=== PATIENT | female | born 1960 | race Caucasian/White ===

== ENCOUNTER 2019-10-10 15:21 | Emergency (ER) | payer OTHER ==
[~2019-10-10] VITALS: Ht 160 cm; Wt 63.5 kg
[~2019-10-10 15:21] MED LIST: BLADDER MED; CHOLESTEROL; HTN; HYDACE5 PO; RESTLESS LEG MED; [UNRECOGNIZED DRUG - OTHER]
[2019-10-10] MEDS ORDERED: Norco 5-325 Ta1 EACH PO (17:20)
== END 2019-10-10 17:56 | disposition home or self-care (01) ==
LOC: ER 15:21
DX: S62.647A Nondisplaced fracture of proximal phalanx of left little finger, initial encounter for closed fracture (principal); F41.9 Anxiety disorder, unspecified; E78.00 Pure hypercholesterolemia, unspecified; I10 Essential (primary) hypertension; Z88.8 Allergy status to other drugs, medicaments and biological substances; Z87.891 Personal history of nicotine dependence; W19.XXXA Unspecified fall, initial encounter
CPT/HCPCS: 26605; 73110; 73130; 96372-59; 99283-25; J3010

== ENCOUNTER 2020-08-02 08:28 | Day surgery (SDC) | payer OTHER ==
[~2020-08-02] VITALS: Wt 59.8 kg
[~2020-08-02 08:28] MED LIST changes: +AMLO5 PO; +Crestor40 MG PO; +Norco 5-325 Ta1 EACH PO; +ROPI1 PO; +TOLT2 PO
--- NOTE | 2020-08-02 10:00 | NUR ---
08/02/20 Digna Loja SIMETHICONE USED DURING PROCEDURE.
== END 2020-08-02 10:46 | disposition home or self-care (01) ==
LOC: ORSCSDS 08:28
PROVIDERS: Internal Medicine Gastroenterology
PROC: 0DBP8ZX Excision of Rectum, Via Natural or Artificial Opening Endoscopic, Diagnostic (ICD-10-PCS; principal; 2020-08-02 09:45)
PROC: 0DBM8ZX Excision of Descending Colon, Via Natural or Artificial Opening Endoscopic, Diagnostic (ICD-10-PCS; principal; 2020-08-02 09:45)
DX: R19.5 Other fecal abnormalities (principal); D12.4 Benign neoplasm of descending colon; K62.1 Rectal polyp; K64.1 Second degree hemorrhoids; I10 Essential (primary) hypertension; Z87.891 Personal history of nicotine dependence; E78.5 Hyperlipidemia, unspecified; Z79.899 Other long term (current) drug therapy
CPT/HCPCS: 88305; J2250; J2405; J2704; J7120

== ENCOUNTER 2020-10-26 22:54 | Inpatient (IN) | payer OTHER ==
[~2020-10-26] VITALS: Ht 160 cm; Wt 60.9 kg
[~2020-10-26 22:54] MED LIST changes: +Detrol1 MG PO; -TOLT2 PO
[2020-10-27 00:28] LABS: Troponin I 0.079 ng/mL (0.000-0.040)
[2020-10-27 00:59] LABS: Influenza A, PCR Negative (NEGATIVE); Influenza B, PCR Negative (NEGATIVE); Resp Syncytial Virus, PCR Negative (NEGATIVE); SARS-Cov-2 (COVID-19) PCR, MMC Negative (NEGATIVE)
--- NOTE | 2020-10-27 02:35 | NUR ---
ADMIT NOTE PT ARRIVED TO PCU FROM ED VIA STRETCHER AT APPROX 0230. THE PT AMBULATED INDEPENDENTLY FROM ED STRETCHER TO PCU BED. PT A&OX4. SP02>92% ON 2L NC. PT LUNGS SOUND COARSE, AUDIBLE W/O STETHOSCOPE. TELEMETRY READS SINUS TACH, HR 130'S. PT AMBULATED TO BATHROOM TO VOID INDEPENDENTLY WITH NO ISSUES. PT ORIENTED TO ROOM AND CALL LIGHT. CALL LIGHT WITHIN REACH.
[2020-10-27] MEDS ORDERED: VENL37.5ER PO (02:44)
[2020-10-27 02:52] LABS: CPK Creatine Kinase 106 U/L (26-193)
--- NOTE | 2020-10-27 03:48 | NUR ---
CRITICAL LAB LAB LUIS'D AT APPROX 0250 TO NOTIFY OF LACTIC ACID VALUE OF 3.0. CALL PLACED TO MD WASHINGTON. MD WASHINGTON WITH NO FURTHER ORDERS AT THIS TIME.
[2020-10-27 04:20] LABS: BASOPHILS ABSOLUTE AUTO 0.04 K/mm3 (0.00-0.23); BASOPHILS PERCENT AUTO 1 % (0-2); EOSINOPHILS ABSOLUTE AUTO 0.01 K/mm3 (0.00-0.68); EOSINOPHILS PERCENT AUTO 0 % (0-6); Hematocrit 36.2 % (33.0-51.0); Hemoglobin 11.7 g/dL (11.5-16.0); IMMATURE GRAN ABSOLUTE AUTO 0.02 K/mm3 (0.00-0.10); IMMATURE GRAN PERCENT AUTO 0 % (0-1); LYMPHOCYTES ABSOLUTE AUTO 1.37 K/mm3 (0.84-5.20); LYMPHOCYTES PERCENT AUTO 25 % (21-46); MONOCYTES ABSOLUTE AUTO 0.54 K/mm3 (0.16-1.47); MONOCYTES PERCENT AUTO 10 % (4-13); Mean Corpuscular HGB 33.7 pg (26.0-34.0); Mean Corpuscular HGB Conc 32.3 g/dL (31.5-36.5); Mean Corpuscular Volume 104 fL (80-100); NEUTROPHILS ABSOLUTE AUTO 3.48 K/mm3 (1.96-9.15); NEUTROPHILS PERCENT AUTO 64 % (41-73); Platelet Count 323 K/mm3 (150-400); RDW Coefficient Variation 13.8 % (11.7-14.2); RDW Standard Deviation 52.9 fL (35.1-46.3); Red Blood Cell Count 3.47 M/mm3 (3.80-5.20); White Blood Cell Count 5.46 K/mm3 (4.00-11.30)
[2020-10-27 04:48] LABS: Alanine Aminotransfer (ALT/SGP 24 U/L (12-78); Albumin, Blood 2.9 g/dL (3.4-5.0); Albumin/Globulin Ratio 0.8 (0.8-1.8); Alk Phos 106 U/L (50-136); Anion Gap 7 mmol/L (6-16); Aspartate Aminotrans (AST/SGOT 23 U/L (12-37); Bilirubin, Total 0.3 mg/dL (0.1-1.0); Blood Urea Nitrogen 15 mg/dL (8-24); Bun/Creatinine Ratio 53.4 (12.0-20.0); CO2, Blood 26 mmol/L (21-32); Calcium, Blood 8.9 mg/dL (8.5-10.1); Chloride, Blood 112 mmol/L (98-108); Creatinine, Blood 0.28 mg/dL (0.40-1.00); Globulin, Blood 3.6 g/dL (2.2-4.0); Glomerular Filtration Rate >60 (60-); Glucose, Blood 110 mg/dL (70-99); Potassium, Blood 3.5 mmol/L (3.5-5.5); Total Protein, Blood 6.5 g/dL (6.4-8.2)
[2020-10-27 05:21] LABS: Sodium, Blood 145 mmol/L (136-145)
--- NOTE | 2020-10-27 05:31 | NUR ---
SHIFT SUMMARY PT A&OX4. SP02>92% ON 2L UPON ARRIVAL, ABLE TO TITRATE DOWN TO 1L NC. AUDIBLY COARSE SOUNDING BREATHING. SOB W/ EXERTION. TELEMETRY READ AFIB/ST UPON ARRIVAL, PT CONVERTED TO SR AT APPROX 0430, SEE STRIP IN CHART. HR 80'S. PT UP TO BATHROOM WITH STAND BY ASSIST TO VOID. PT DENIES PAIN. NS INFUSING PER EMAR. CALL LIGHT IN REACH. PT SLEPT SINCE BEING ADMITTED. WILL GIVE REPORT TO ONCOMING SHIFT NURSE.
[2020-10-27 10:34] LABS: CPK Creatine Kinase 91 U/L (26-193)
--- NOTE | 2020-10-27 17:34 | NUR ---
Spiritual care note: Asked to speak to Narcisa about ACP. She was very interested in completing an advanced directive. We did this together. She did not want to assign a spokes-person saying "I don't really have any one and I don't want my sons put in that position." She told me about the loss of numerous family members to cancer. She lost her 4 years ago. Two sons live [id number]. Narcisa spoke at length about her new dx of cancer. Theraputic listening was helpful. She needed to vent. She is "not worship. More spiritual." She lost her tiffanie in God when her dtr . Advanced directive completed and notarized. Narcisa does not want heroic measures if there is no hope for meaningful recovery. "If I can't interact with friends/family, let me go." We had an easy rapport and I will remain available. Copies of AD made. Several given to pt. I hand carried one copy to Medical Records.
--- NOTE | 2020-10-27 17:57 | NUR ---
SHIFT NOTE PT HAS BEEN INDEPENDANT IN THE ROOM T/O THE DAY. PT DENIES CP, DID HAVE SOME SOB THIS AFTERNOON WHICH WAS RESOLVED WITH BRATHING TREATMENT. PT A/O X4, TALKATIVE, NADN, VSS. PT INTERMITTENTLY ON NC FOR O2. AWAITING RESULTS OF ECHO AT THIS TIME.
--- NOTE | 2020-10-28 06:56 | NUR ---
SHIFT SUMMARY PATIENT SLIGHTLY ANXIOUS AT THE BEGINNING OF THE SHIFT. PATIENT HAD SOME CONCERNS ABOUT HER HOME MEDICATIONS NOT BEING ORDERED CORRECTLY. DR FLAHERTY NOTIFIED AND ORDERS RECIEVED. PATIENT THEN ABLE TO SETTLE DOWN AND RELAX. PATIENT REPORTS THAT, ALTHOUGH STILL WHEEZY, HER BREATHING HAS IMPROVED SINCE LAST NIGHT. PATIENT APPEARED TO SLEEP WELL THROUGHOUT THE NIGHT. PATIENT CURRENTLY AWAKE IN ROOM SITTING AT THE EDGE OF THE BED, WARM BLANKET PROVIDED. WILL CONTINUE CURRENT PLAN OF CARE.
[2020-10-28 09:06] LABS: Hematocrit 38.4 % (33.0-51.0); Hemoglobin 12.4 g/dL (11.5-16.0); Mean Corpuscular HGB 33.6 pg (26.0-34.0); Mean Corpuscular HGB Conc 32.3 g/dL (31.5-36.5); Mean Corpuscular Volume 104 fL (80-100); Mean Platelet Volume 11.1 fL (9.1-12.4); Platelet Count 353 K/mm3 (150-400); RDW Standard Deviation 53.9 fL (35.1-46.3); Red Blood Cell Count 3.69 M/mm3 (3.80-5.20); White Blood Cell Count 5.16 K/mm3 (4.00-11.30)
[2020-10-28 09:21] LABS: Anion Gap 7 mmol/L (6-16); Blood Urea Nitrogen 19 mg/dL (8-24); Bun/Creatinine Ratio 66.4 (12.0-20.0); CO2, Blood 27 mmol/L (21-32); Calcium, Blood 9.8 mg/dL (8.5-10.1); Chloride, Blood 106 mmol/L (98-108); Creatinine, Blood 0.29 mg/dL (0.40-1.00); Glomerular Filtration Rate >60 (60-); Glucose, Blood 206 mg/dL (70-99); Potassium, Blood 4.1 mmol/L (3.5-5.5); Sodium, Blood 140 mmol/L (136-145)
[2020-10-28 09:30] LABS: BASOPHILS PERCENT MAN 0 % (0-2); EOSINOPHILS PERCENT MAN 0 % (0-6); LYMPHOCYTES ABSOLUTE MAN 0.72 K/mm3 (0.84-5.20); LYMPHOCYTES PERCENT MAN 14 % (21-46); MONOCYTES PERCENT MAN 2 % (4-13); NEUTROPHILS ABSOLUTE MAN 4.33 K/mm3 (1.96-9.15); SEG NEUTROPHILS PERCENT MAN 84 % (41-73); TOTAL CELLS COUNTED 100
--- NOTE | 2020-10-28 12:13 | NUR ---
Brief supportive visit this afternoon. Pt sitting on edge of bed upon arrival eating lunch. Pt reports breathing has significantly improved and denies pain at this time. Pt reports living alone and has a son living in [place] and another son who lives in [place]. Pt denies anxiety and states she isn't going to stress and go with the flow of things. At this time Dr Jones arrives to examine Pt. This RN ended visit. Plan to F/U with Pt for supportive visit at a later time.
[2020-10-28 13:38] LABS: International Normalized Ratio 0.97; Prothrombin Time Results 10.4 Sec (9.7-11.5)
--- NOTE | 2020-10-28 18:03 | NUR ---
SHIFT NOTE PT HAS BEEN INDEPENDANT IN ROOM ALL DAY. VSS. NO ACUTE CHANGES THIS SHIFT. PT IS AWAITING POSSIBLE D/C AND OUTPT LUNG BIOPSY
[2020-10-29 04:22] LABS: Hematocrit 37.7 % (33.0-51.0); Hemoglobin 12.6 g/dL (11.5-16.0); Mean Corpuscular HGB 34.3 pg (26.0-34.0); Mean Corpuscular HGB Conc 33.4 g/dL (31.5-36.5); Mean Corpuscular Volume 103 fL (80-100); Mean Platelet Volume 10.9 fL (9.1-12.4); Platelet Count 339 K/mm3 (150-400); RDW Standard Deviation 53.1 fL (35.1-46.3); Red Blood Cell Count 3.67 M/mm3 (3.80-5.20); White Blood Cell Count 3.78 K/mm3 (4.00-11.30)
[2020-10-29 04:39] LABS: Anion Gap 4 mmol/L (6-16); Blood Urea Nitrogen 22 mg/dL (8-24); Bun/Creatinine Ratio 64.9 (12.0-20.0); CO2, Blood 31 mmol/L (21-32); Calcium, Blood 9.7 mg/dL (8.5-10.1); Chloride, Blood 106 mmol/L (98-108); Creatinine, Blood 0.34 mg/dL (0.40-1.00); Glomerular Filtration Rate >60 (60-); Glucose, Blood 162 mg/dL (70-99); Potassium, Blood 3.8 mmol/L (3.5-5.5); Sodium, Blood 141 mmol/L (136-145)
[2020-10-29 05:03] LABS: BAND PERCENT MAN 2 % (0-8); BASOPHILS PERCENT MAN 0 % (0-2); EOSINOPHILS PERCENT MAN 0 % (0-6); LYMPHOCYTES ABSOLUTE MAN 0.34 K/mm3 (0.84-5.20); LYMPHOCYTES PERCENT MAN 9 % (21-46); MONOCYTES ABSOLUTE MAN 0.03 K/mm3 (0.16-1.47); MONOCYTES PERCENT MAN 1 % (4-13); SEG NEUTROPHILS PERCENT MAN 88 % (41-73); TOTAL CELLS COUNTED 100
--- NOTE | 2020-10-29 06:31 | NUR ---
SHIFT SUMMARY PATIENT PLEASENT THROUGHOUT THE NIGHT. PATIENT APPEARED TO SLEEP WELL MOST OF THE NIGHT. PATIENT APPEARS TO BE VERY EXCITED ABOUT GOING HOME, PATIENT TALKED FREQUENTLY ABOUT HER HOPES TO GO HOME IN THE MORNING. VITAL SIGNS CHARTED. PATIENT CURRENTLY APPEARS TO BE SLEEPING, RESPIRATIONS EVEN AND UNLABORED. PATIENT HAS BEEN NPO SINCE 0000. WILL CONTINUE CURRENT PLAN OF CARE.
[2020-10-29] MEDS ORDERED: DILTIAZEM 24HR360 MG PO (11:52)
[2020-10-29] MEDS ORDERED: Prednisone20 MG PO (11:53)
[2020-10-29] MEDS ORDERED: SEEBRI NEOHA15.6 MC1 INH (11:54)
--- NOTE | 2020-10-29 12:41 | NUR ---
PT IV REMOVED INTACT AND PRESSURE DRESSED. PT EDUCATED ABOUT FOLLOW UP APPOINTMENTS AND NEW MEDICATIONS
== END 2020-10-29 12:29 | disposition home or self-care (01) | DRG 190 ==
LOC: ER 22:54 → PCU 10-27 01:42
PROVIDERS: Emergency Medicine; Internal Medicine Critical Care Medicine; Student in an Organized Health Care Education/Training Program; ADMIT Internal Medicine
DX: J44.1 Chronic obstructive pulmonary disease with (acute) exacerbation (principal); I21.A1 Myocardial infarction type 2; E87.2 Acidosis; C34.91 Malignant neoplasm of unspecified part of right bronchus or lung; C77.1 Secondary and unspecified malignant neoplasm of intrathoracic lymph nodes; R65.10 Systemic inflammatory response syndrome (SIRS) of non-infectious origin without acute organ dysfunction; Z87.891 Personal history of nicotine dependence; I48.0 Paroxysmal atrial fibrillation; G25.81 Restless legs syndrome; Z66 Do not resuscitate; Z20.822 Contact with and (suspected) exposure to COVID-19
CPT/HCPCS: 0241U; 36415; 80048; 80053; 82550; 83605; 83690; 83735; 83880; 84443; 84484; 85007; 85025; 85027; 85610; 87040; 93005; 93010; 93306; 93356; 94640; 94644; 94664; 94667; 94760; 96361; 96365; 96367; 98960; 99285-25; 99406; A9270; J0456; J0696; J1650; J2930; J3480; J7030; J7050

== ENCOUNTER 2020-11-24 15:29 | Observation (INO) | payer OTHER ==
[~2020-11-24] VITALS: Ht 160 cm; Wt 61.1 kg
[~2020-11-24 15:29] MED LIST changes: +DILTIAZEM 24HR360 MG PO; +Prednisone20 MG PO; +SEEBRI NEOHA15.6 MC1 INH; +VENL37.5ER PO
[2020-11-24 15:57] LABS: BASOPHILS ABSOLUTE AUTO 0.03 K/mm3 (0.00-0.23); BASOPHILS PERCENT AUTO 1 % (0-2); EOSINOPHILS ABSOLUTE AUTO 0.01 K/mm3 (0.00-0.68); EOSINOPHILS PERCENT AUTO 0 % (0-6); Hematocrit 36.9 % (33.0-51.0); Hemoglobin 12.2 g/dL (11.5-16.0); IMMATURE GRAN ABSOLUTE AUTO 0.02 K/mm3 (0.00-0.10); IMMATURE GRAN PERCENT AUTO 0 % (0-1); LYMPHOCYTES ABSOLUTE AUTO 0.41 K/mm3 (0.84-5.20); LYMPHOCYTES PERCENT AUTO 7 % (21-46); MONOCYTES ABSOLUTE AUTO 0.04 K/mm3 (0.16-1.47); MONOCYTES PERCENT AUTO 1 % (4-13); Mean Corpuscular HGB 33.6 pg (26.0-34.0); Mean Corpuscular HGB Conc 33.1 g/dL (31.5-36.5); Mean Corpuscular Volume 102 fL (80-100); Mean Platelet Volume 10.8 fL (9.1-12.4); NEUTROPHILS ABSOLUTE AUTO 5.79 K/mm3 (1.96-9.15); NEUTROPHILS PERCENT AUTO 92 % (41-73); Platelet Count 377 K/mm3 (150-400); RDW Coefficient Variation 13.9 % (11.7-14.2); RDW Standard Deviation 52.9 fL (35.1-46.3); Red Blood Cell Count 3.63 M/mm3 (3.80-5.20)
[2020-11-24] MEDS ORDERED: XARELTO20 MG PO (16:43)
[2020-11-24 17:05] LABS: Alanine Aminotransfer (ALT/SGP 30 U/L (12-78); Albumin, Blood 3.2 g/dL (3.4-5.0); Albumin/Globulin Ratio 0.8 (0.8-1.8); Alk Phos 129 U/L (50-136); Anion Gap 6 mmol/L (6-16); Aspartate Aminotrans (AST/SGOT 29 U/L (12-37); Bilirubin, Total 0.4 mg/dL (0.1-1.0); Blood Urea Nitrogen 11 mg/dL (8-24); Bun/Creatinine Ratio 36.4 (12.0-20.0); CO2, Blood 24 mmol/L (21-32); Chloride, Blood 109 mmol/L (98-108); Globulin, Blood 3.9 g/dL (2.2-4.0); Glomerular Filtration Rate >60 (60-); Glucose, Blood 321 mg/dL (70-99); Potassium, Blood 3.9 mmol/L (3.5-5.5); Sodium, Blood 139 mmol/L (136-145); Total Protein, Blood 7.1 g/dL (6.4-8.2); Troponin I 0.065 ng/mL (0.000-0.040)
[2020-11-24 19:03] LABS: Influenza A, PCR NEGATIVE (NEGATIVE); Influenza B, PCR NEGATIVE (NEGATIVE); Resp Syncytial Virus, PCR NEGATIVE (NEGATIVE); SARS-Cov-2 (COVID-19) PCR, MMC NEGATIVE (NEGATIVE)
[2020-11-24] MEDS ORDERED: FLUT1DIS8 INH (20:56)
[2020-11-25 00:40] LABS: BASOPHILS ABSOLUTE AUTO 0.01 K/mm3 (0.00-0.23); BASOPHILS PERCENT AUTO 0 % (0-2); EOSINOPHILS PERCENT AUTO 0 % (0-6); Hematocrit 35.5 % (33.0-51.0); Hemoglobin 11.5 g/dL (11.5-16.0); IMMATURE GRAN ABSOLUTE AUTO 0.01 K/mm3 (0.00-0.10); IMMATURE GRAN PERCENT AUTO 0 % (0-1); LYMPHOCYTES PERCENT AUTO 14 % (21-46); MONOCYTES ABSOLUTE AUTO 0.04 K/mm3 (0.16-1.47); MONOCYTES PERCENT AUTO 1 % (4-13); Mean Corpuscular HGB 32.8 pg (26.0-34.0); Mean Corpuscular HGB Conc 32.4 g/dL (31.5-36.5); Mean Corpuscular Volume 101 fL (80-100); Mean Platelet Volume 10.7 fL (9.1-12.4); NEUTROPHILS ABSOLUTE AUTO 2.44 K/mm3 (1.96-9.15); NEUTROPHILS PERCENT AUTO 84 % (41-73); Platelet Count 360 K/mm3 (150-400); RDW Coefficient Variation 13.9 % (11.7-14.2); RDW Standard Deviation 51.8 fL (35.1-46.3); Red Blood Cell Count 3.51 M/mm3 (3.80-5.20)
[2020-11-25 04:45] LABS: Anion Gap 7 mmol/L (6-16); Blood Urea Nitrogen 13 mg/dL (8-24); Bun/Creatinine Ratio 40.4 (12.0-20.0); CO2, Blood 27 mmol/L (21-32); Calcium, Blood 9.6 mg/dL (8.5-10.1); Chloride, Blood 107 mmol/L (98-108); Creatinine, Blood 0.32 mg/dL (0.40-1.00); Glomerular Filtration Rate >60 (60-); Glucose, Blood 258 mg/dL (70-99); Potassium, Blood 4.1 mmol/L (3.5-5.5); Sodium, Blood 141 mmol/L (136-145)
--- NOTE | 2020-11-25 06:07 | NUR ---
SHIFT SUMMARY PATIENT ARRIVED TO PCU FROM ED @2350, REPORT FROM PADMINI SHELLEY. PATIENT IS ALERT AND ORIENTED. COOPERATIVE WITH CARE. SBA TO BSC. ARRIVED TO UNIT ON RA, TRANSFERRED SBA TO BED AND WAS SOB, 02 SATS LOWER 80s. RT IN ROOM, BREATHING TREATMENT PROVIDED. PATIENT NOW ON 2L NC 02 SATS >93%. PATIENT CONVERTED FROM A.FIB TO SR. VSS, PATIENT DENIES CP/PRESSURE, NO ACUTE CHANGES. CALL LIGHT IN REACH.
--- NOTE | 2020-11-25 09:55 | NUR ---
MORNING UPDATE PT WAS AWAKE AND COOPERATIVE WITH MORNING CARE. PT EXPRESSED CONCERN REGARDING HER CHEMO APPOINTMENT TODAY; AFTER CONSULTING DR. RABAGO'S OFFICE IT WAS DETERMINED THAT HER APPOINTMENT CAN BE RESCHEDULED FOR NEXT WEEK. PT WOULD LIKE TO GO HOME NOW THAT HER HR IS UNDER CONTROL; DR FLAHERTY AGREED TO DISCHARGE THE PATIENT. PT IS COMPLETING A HOME O2 EVAL WITH RT AND WILL BE DISCHARGED THIS AFTERNOON.
[2020-11-25] MEDS ORDERED: NICOTINE1 EACH TOP (13:42)
--- NOTE | 2020-11-25 16:15 | NUR ---
DISCHARGE PT DISCHARGED TO THE CARE OF HER SIGNIFICANT OTHER AND LEFT VIA WHEELCHAIR AT APPROXIMATELY 1550. PT LEFT WITH HER PERSONAL BELONGINGS, WAS INSTRUCTED ON FOLLOW UP APPOINTMENTS AND MEDICATION CHANGES. PT WAS ALSO SET UP WITH [facility] [place] FOR HOME OXYGEN AND LEFT WITH ORDERS FOR 1L AT REST AND 4L WITH ACTIVITY. VS STABLE UP DISCHARGE
--- NOTE | 2020-11-25 18:41 | NUR ---
Spiritual care note: Narcisa and Vikas establishes a good rapport on her previous admission. She wanted to change ehr code status to Full Code. New Edu completed and was awaiting physician's signature.
== END 2020-11-25 15:55 | disposition home or self-care (01) ==
LOC: ER 15:29 → PCU 15:30 → ERHOLD 15:30 → PCU 23:49
PROVIDERS: Nurse Practitioner Acute Care; Physician Assistant; ADMIT Internal Medicine
DX: J96.01 Acute respiratory failure with hypoxia (principal); I48.0 Paroxysmal atrial fibrillation; C34.11 Malignant neoplasm of upper lobe, right bronchus or lung; I10 Essential (primary) hypertension; G25.81 Restless legs syndrome; R77.8 Other specified abnormalities of plasma proteins; E78.5 Hyperlipidemia, unspecified; J43.9 Emphysema, unspecified; R01.1 Cardiac murmur, unspecified; F17.210 Nicotine dependence, cigarettes, uncomplicated; Z20.822 Contact with and (suspected) exposure to COVID-19; Z88.8 Allergy status to other drugs, medicaments and biological substances; Z92.21 Personal history of antineoplastic chemotherapy; Z79.51 Long term (current) use of inhaled steroids; Z66 Do not resuscitate
CPT/HCPCS: 0241U; 36415; 71046; 71260; 80048; 80053; 83880; 84145; 84484; 85025; 93005; 93010; 94640; 94760; 94761; 96365; 96366; 99285-25; A9270; G0378; J3480; Q9967

== ENCOUNTER 2021-01-05 12:39 | Emergency (ER) | payer OTHER ==
[~2021-01-05] VITALS: Ht 160 cm; Wt 59.0 kg
[~2021-01-05 12:39] MED LIST changes: +FLUT1DIS8 INH; +NICOTINE1 EACH TOP; +XARELTO20 MG PO
[2021-01-05 13:38] LABS: BASOPHILS PERCENT AUTO 0 % (0-2); EOSINOPHILS PERCENT AUTO 0 % (0-6); Hemoglobin 7.3 g/dL (11.5-16.0); IMMATURE GRAN ABSOLUTE AUTO 0.05 K/mm3 (0.00-0.10); IMMATURE GRAN PERCENT AUTO 1 % (0-1); LYMPHOCYTES ABSOLUTE AUTO 0.16 K/mm3 (0.84-5.20); LYMPHOCYTES PERCENT AUTO 3 % (21-46); MONOCYTES ABSOLUTE AUTO 0.23 K/mm3 (0.16-1.47); MONOCYTES PERCENT AUTO 4 % (4-13); Mean Corpuscular HGB 33.3 pg (26.0-34.0); Mean Corpuscular HGB Conc 33.2 g/dL (31.5-36.5); Mean Corpuscular Volume 101 fL (80-100); Mean Platelet Volume 9.7 fL (9.1-12.4); NEUTROPHILS ABSOLUTE AUTO 5.63 K/mm3 (1.96-9.15); NEUTROPHILS PERCENT AUTO 93 % (41-73); Platelet Count 476 K/mm3 (150-400); RDW Coefficient Variation 13.9 % (11.7-14.2); RDW Standard Deviation 48.8 fL (35.1-46.3); Red Blood Cell Count 2.19 M/mm3 (3.80-5.20); White Blood Cell Count 6.07 K/mm3 (4.00-11.30)
[2021-01-05] MEDS ORDERED: ALBU90OI6 INH (13:49)
[2021-01-05] MEDS ORDERED: FLUT1DIS8 INH (13:49)
[2021-01-05] MEDS ORDERED: DRON400T PO (13:50)
[2021-01-05 14:00] LABS: Alanine Aminotransfer (ALT/SGP 23 U/L (12-78); Albumin, Blood 2.8 g/dL (3.4-5.0); Albumin/Globulin Ratio 0.8 (0.8-1.8); Alk Phos 86 U/L (50-136); Anion Gap 6 mmol/L (6-16); Aspartate Aminotrans (AST/SGOT 18 U/L (12-37); Bilirubin, Total 0.3 mg/dL (0.1-1.0); Blood Urea Nitrogen 21 mg/dL (8-24); Bun/Creatinine Ratio 51.1 (12.0-20.0); CO2, Blood 29 mmol/L (21-32); Calcium, Blood 8.8 mg/dL (8.5-10.1); Chloride, Blood 103 mmol/L (98-108); Creatinine, Blood 0.41 mg/dL (0.40-1.00); Globulin, Blood 3.5 g/dL (2.2-4.0); Glomerular Filtration Rate >60 (60-); Glucose, Blood 114 mg/dL (70-99); Potassium, Blood 4.1 mmol/L (3.5-5.5); Sodium, Blood 138 mmol/L (136-145); Total Protein, Blood 6.3 g/dL (6.4-8.2); Troponin I 0.026 ng/mL (0.000-0.040)
== END 2021-01-05 16:43 | disposition home or self-care (01) ==
LOC: ER 12:39
PROVIDERS: Physician Assistant
DX: J90 Pleural effusion, not elsewhere classified (principal); C34.90 Malignant neoplasm of unspecified part of unspecified bronchus or lung; I10 Essential (primary) hypertension; E78.5 Hyperlipidemia, unspecified; F17.210 Nicotine dependence, cigarettes, uncomplicated; Z88.8 Allergy status to other drugs, medicaments and biological substances; Z79.899 Other long term (current) drug therapy
CPT/HCPCS: 71260; 80053; 84484; 85025; 93005; 93010; 94640; 99284-25; Q9967

== ENCOUNTER 2021-01-07 08:32 | Day surgery (SDC) | payer OTHER ==
[~2021-01-07] VITALS: Wt 59.9 kg
[~2021-01-07 08:32] MED LIST changes: +ALBU90OI6 INH; +DRON400T PO
[2021-01-07] MEDS ORDERED: ALBU2.5V5 INH (15:21)
== END 2021-01-07 16:31 | disposition home or self-care (01) ==
LOC: ATC 08:32
DX: D64.81 Anemia due to antineoplastic chemotherapy (principal); C34.11 Malignant neoplasm of upper lobe, right bronchus or lung; C77.1 Secondary and unspecified malignant neoplasm of intrathoracic lymph nodes; T45.1X5A Adverse effect of antineoplastic and immunosuppressive drugs, initial encounter; I48.91 Unspecified atrial fibrillation; I10 Essential (primary) hypertension; Z87.891 Personal history of nicotine dependence
CPT/HCPCS: 36415; 36430; 86850; 86900; 86901; 86920; J7050; P9016

== ENCOUNTER 2021-05-12 10:21 | Emergency (ER) | payer OTHER ==
[~2021-05-12] VITALS: Ht 160 cm; Wt 54.4 kg
[~2021-05-12 10:21] MED LIST changes: -ALBU90OI6 INH; -Crestor40 MG PO; -DILTIAZEM 24HR360 MG PO; -DRON400T PO; -VENL37.5ER PO; -XARELTO20 MG PO
[2021-05-12 11:12] LABS: BASOPHILS PERCENT AUTO 0 % (0-2); Hematocrit 31.1 % (33.0-51.0); Hemoglobin 10.3 g/dL (11.5-16.0); LYMPHOCYTES ABSOLUTE AUTO 0.24 K/mm3 (0.84-5.20); LYMPHOCYTES PERCENT AUTO 13 % (21-46); MONOCYTES PERCENT AUTO 6 % (4-13); Mean Corpuscular HGB Conc 33.1 g/dL (31.5-36.5); Mean Corpuscular Volume 100 fL (80-100); Mean Platelet Volume 12.4 fL (9.1-12.4); RDW Coefficient Variation 13.1 % (11.7-14.2); RDW Standard Deviation 48.3 fL (35.1-46.3); Red Blood Cell Count 3.12 M/mm3 (3.80-5.20); White Blood Cell Count 1.81 K/mm3 (4.00-11.30)
[2021-05-12 11:18] LABS: EOSINOPHILS PERCENT AUTO 0 % (0-6); IMMATURE GRAN ABSOLUTE AUTO 0.02 K/mm3 (0.00-0.10); IMMATURE GRAN PERCENT AUTO 1 % (0-1); NEUTROPHILS ABSOLUTE AUTO 1.45 K/mm3 (1.96-9.15); NEUTROPHILS PERCENT AUTO 80 % (41-73); Platelet Count 20 K/mm3 (150-400)
[2021-05-12 11:36] LABS: Alanine Aminotransfer (ALT/SGP 51 U/L (12-78); Albumin, Blood 3.3 g/dL (3.4-5.0); Albumin/Globulin Ratio 0.9 (0.8-1.8); Alk Phos 63 U/L (50-136); Anion Gap 4 mmol/L (6-16); Aspartate Aminotrans (AST/SGOT 88 U/L (12-37); Bilirubin, Total 0.3 mg/dL (0.1-1.0); Blood Urea Nitrogen 18 mg/dL (8-24); Bun/Creatinine Ratio 27.9 (12.0-20.0); CO2, Blood 33 mmol/L (21-32); Calcium, Blood 9.3 mg/dL (8.5-10.1); Chloride, Blood 96 mmol/L (98-108); Creatinine, Blood 0.65 mg/dL (0.40-1.00); Globulin, Blood 3.8 g/dL (2.2-4.0); Glomerular Filtration Rate >60 (60-); Glucose, Blood 89 mg/dL (70-99); Potassium, Blood 3.5 mmol/L (3.5-5.5); Sodium, Blood 133 mmol/L (136-145); Total Protein, Blood 7.1 g/dL (6.4-8.2); Troponin I 0.062 ng/mL (0.000-0.040)
[2021-05-12] MEDS ORDERED: LEVOFLOXACIN (12:49)
[2021-05-12] MEDS ORDERED: DEXA2 PO (14:14)
== END 2021-05-12 15:13 | disposition home or self-care (01) ==
LOC: ER 10:21
PROVIDERS: Emergency Medicine
DX: U07.1 COVID-19 (principal); Z66 Do not resuscitate; J12.82 Pneumonia due to coronavirus disease 2019; R09.02 Hypoxemia; R77.8 Other specified abnormalities of plasma proteins; C34.90 Malignant neoplasm of unspecified part of unspecified bronchus or lung; J43.9 Emphysema, unspecified; I10 Essential (primary) hypertension; F17.210 Nicotine dependence, cigarettes, uncomplicated; Z79.899 Other long term (current) drug therapy; Z79.01 Long term (current) use of anticoagulants; Z88.8 Allergy status to other drugs, medicaments and biological substances; Z99.81 Dependence on supplemental oxygen; D61.818 Other pancytopenia
CPT/HCPCS: 71045; 71260; 80053; 83880; 84145; 84484; 85025; 93005; 93010; 99285-25; J1100; Q9967

== ENCOUNTER 2021-05-16 11:46 | Observation (INO) | payer OTHER ==
[~2021-05-16] VITALS: Ht 160 cm; Wt 49.4 kg
[~2021-05-16 11:46] MED LIST changes: +DEXA2 PO; +LEVOFLOXACIN
[2021-05-16 12:44] LABS: BASOPHILS ABSOLUTE AUTO 0.01 K/mm3 (0.00-0.23); BASOPHILS PERCENT AUTO 0 % (0-2); EOSINOPHILS PERCENT AUTO 0 % (0-6); Hematocrit 34.9 % (33.0-51.0); Hemoglobin 11.7 g/dL (11.5-16.0); Mean Corpuscular HGB 33.6 pg (26.0-34.0); Mean Corpuscular HGB Conc 33.5 g/dL (31.5-36.5); Mean Corpuscular Volume 100 fL (80-100); Mean Platelet Volume 12.2 fL (9.1-12.4); RDW Coefficient Variation 13.1 % (11.7-14.2); RDW Standard Deviation 47.8 fL (35.1-46.3); Red Blood Cell Count 3.48 M/mm3 (3.80-5.20); White Blood Cell Count 7.72 K/mm3 (4.00-11.30)
[2021-05-16 12:53] LABS: IMMATURE GRAN ABSOLUTE AUTO 0.08 K/mm3 (0.00-0.10); IMMATURE GRAN PERCENT AUTO 1 % (0-1); LYMPHOCYTES PERCENT AUTO 4 % (21-46); MONOCYTES ABSOLUTE AUTO 0.13 K/mm3 (0.16-1.47); MONOCYTES PERCENT AUTO 2 % (4-13); NEUTROPHILS PERCENT AUTO 93 % (41-73)
[2021-05-16 12:54] LABS: Platelet Count 30 K/mm3 (150-400)
[2021-05-16 13:06] LABS: Alanine Aminotransfer (ALT/SGP 66 U/L (12-78); Albumin, Blood 3.2 g/dL (3.4-5.0); Albumin/Globulin Ratio 0.8 (0.8-1.8); Alk Phos 79 U/L (50-136); Anion Gap 5 mmol/L (6-16); Aspartate Aminotrans (AST/SGOT 87 U/L (12-37); Bilirubin, Total 0.3 mg/dL (0.1-1.0); Blood Urea Nitrogen 28 mg/dL (8-24); Bun/Creatinine Ratio 49.9 (12.0-20.0); CO2, Blood 31 mmol/L (21-32); Calcium, Blood 9.5 mg/dL (8.5-10.1); Chloride, Blood 102 mmol/L (98-108); Creatinine, Blood 0.56 mg/dL (0.40-1.00); Globulin, Blood 3.9 g/dL (2.2-4.0); Glomerular Filtration Rate >60 (60-); Glucose, Blood 139 mg/dL (70-99); Potassium, Blood 3.8 mmol/L (3.5-5.5); Sodium, Blood 138 mmol/L (136-145); Total Protein, Blood 7.1 g/dL (6.4-8.2); Troponin I <0.015 ng/mL (0.000-0.040)
[2021-05-16] MEDS ORDERED: XARELTO20 MG PO (13:45)
[2021-05-16] MEDS ORDERED: Crestor20 MG PO (13:46)
[2021-05-16] MEDS ORDERED: DILTIAZEM 24HR360 MG PO (13:47)
[2021-05-16] MEDS ORDERED: ROPINIROLE HCL PO (13:48)
[2021-05-16] MEDS ORDERED: TOLTERODINE TART2 MG PO (13:48)
[2021-05-16] MEDS ORDERED: VENLAFAXINE H37.5 M1 PO (13:49)
[2021-05-16] MEDS ORDERED: DRON400T PO (13:50)
[2021-05-16] MEDS ORDERED: ALBU90OI6 INH (14:24)
[2021-05-16] MEDS ORDERED: FLUT1DIS8 INH (14:24)
[2021-05-16] MEDS ORDERED: ALBUTEROL0.63 MG/3 NEB (14:25)
--- NOTE | 2021-05-16 15:22 | NUR ---
pt in with covid end stage lung disease and escalating dyspnea. discussion with admitting executive vice president and chief financial officer and myslf reccoment comfort care as pt may demise quickly from this virus. pt agreed her family notified to visit. pt sitting straight up labored aaudible wheezes accessory use and air hunger. requests updarft and pain medications.
--- NOTE | 2021-05-16 18:39 | NUR ---
REPORT RECEIVED FROM LINEN KEEPER, AWAITING FOR ROOM TO BE CLEANED TO TRANSFER PT.
--- NOTE | 2021-05-16 19:35 | NUR ---
adjusted medication per doctor order will monitor closely for aggitation , withdrawls and airhunger. pt keps score is 20% due to covid and her comorbid condions.
[2021-05-17] MEDS ORDERED: ONDA8 PO (00:22)
[2021-05-17] MEDS ORDERED: LEVOFLOXACIN750 MG PO (00:23)
[2021-05-17] MEDS ORDERED: DEXA2 PO (00:24)
--- NOTE | 2021-05-17 04:59 | NUR ---
PT DROWSY AND WILL NOT OPEN EYES TO VERBAL STIMULI. PT NPO. DOES NOT RESPOND TO QUESTIONS OF PAIN. WILL CONTINUE TO MONITOR. ATTENDS IN PLACE, PT DRY.
--- NOTE | 2021-05-17 05:00 | NUR ---
PT DROWSY, NOT RESPONSIVE TO VERBAL STIMULI WITH COMPLETE SENTENCES. O2 INCREASED TO 15 LPM. WILL BE EVALUATED BY RT, BREATHING TREATMENTS NEEDED PER PROGRESS NOTE. WILL CONTINUE TO MONITOR.
--- NOTE | 2021-05-17 05:03 | NUR ---
PT DROWSY, WILL OPEN EYES BUT NOT RESPOND IN FULL SENTENCES. PT SUCCTIONED TO REMOVE SECRETIONS, SCANT AMOUNT. ORAL CARE PROVIDED.
--- NOTE | 2021-05-17 05:08 | NUR ---
PT TREATED FOR AIR HUNGER EVIDENCED BY AGGITATION. PT IS ABLE TO REPOSITION HERSELF IN BED. WILL OPEN EYES BRIEFLY TO VERBAL STIMULI. SUCCTIONED. EVALUATED BY RT, OXYGEN REDUCED TO 10LPM VIA HIGH FLOW NC. WILL CONTINUE TO MONITOR.
--- NOTE | 2021-05-17 05:10 | NUR ---
PT WILL OPEN EYES TO VERBAL STIMULI, ABLE TO NOD YES OR NO TO QUESTIONS. WARM BLANKET APPLIED, REPOSITIONED IN BED. ORAL CARE PROVIDED AND SUCCTIONED SCANT AMOUNT OF WHITE LIQUID. WILL CONTINUE TO MONITOR.
--- NOTE | 2021-05-17 06:30 | NUR ---
FELISHA IS SITTING ON THE EDGE OF HER BED AT 550. PT WAS GETTING OUT OF BED STATING, "I CAN'T BREATHE." BED ALARM IS ON, SO STAFF RESPONDED. ADMINISTERED PRN MEDICATION FOR AIR HUNGER AND ANXIETY. RT GAVE BREATHING TREATMENT PER PROTOCOL. PT RECEIVED ORAL CARE AND SUCTIONING. PT REASSESSED AT 0630, SHE IS NOW SLEEPING AND IN NO SIGNS OF DISTRESS. WILL CONTINUE TO MONITOR.
--- NOTE | 2021-05-17 06:42 | NUR ---
CORRESPONDENCE TO DR [id number]: PLACED CALL TO DR. RUTH REQUESTING PRN ATROPINE FOR PT'S SECRETIONS. ORDERS UPDATED, ATROPINE GTTS SL TID PRN SECRETIONS.
--- NOTE | 2021-05-17 07:40 | NUR ---
SHIFT SUMMARY PT ARRIVED TO MEDICAL UNIT AT 20:00 YESTERDAY 8-16 FROM ER. PT IS COMFORT CARE, FRAIL AND DROWSY. DURING THE SHIFT SHE BEGAN TO WAKE UP MORE, GETTING OUT OF BED STATING "I CAN'T BREATHE." COMFORT CARE WITH DC PLANS TO HOSPICE AT HOME. PT WITH SECRETIONS, SUCCTIONED AND TREATED WITH PRN PAIN MEDS FOR AIR HUNGER AND ANXIETY.
--- NOTE | 2021-05-17 11:01 | NUR ---
PATIENT AROUSES TO TOUCH BUT ONLY OPENS EYES. DOES NOT ANSWER QUESTIONS. SECRETIONS AUDIBLE AND PT MEDICATED PER EMAR. NO ACUTE DISTRESS NOTED AT THIS TIME.
--- NOTE | 2021-05-17 17:56 | NUR ---
family in to visit, asking about plans for pt, redirected them to , call light in reach, pt sitting up to make breathing easier, saline locked, 4L via nc, will continue to monitor and treat until share bsr with noc nurse
--- NOTE | 2021-05-18 04:17 | NUR ---
UI PROGRAMMER SUMMARY PT SLEPT WELL TONIGHT. DENIED PAIN. MEDICATED FOR DYSPNEA X1 OVERNIGHT AND WET BREATH SOUND. SUCTIONED NEEDED. PT TRIED TO GET OUT OF BED ONCE TOWARDS BEGINNING OF NOC SHIFT. CONTINUES TO BE ON 1L O2. CALL LIGHT WITHIN REACH, BED ALARM ON, WILL CONTINUE TO MONITOR.
--- NOTE | 2021-05-18 10:28 | NUR ---
PT RESTLESS, SS OF AIR HUNGER, MEDICATED WITH ROXONOL. REPOSITIONES AND SUCTIONED LG AMOUNT OF [place] SECRETIONS. SON SITTING AT BEDSIDE ATTENTIVE TO MOM
--- NOTE | 2021-05-18 10:30 | NUR ---
SS OF AIR HUNGER, MEDICATED WITH ROXONOL. SUCTIONES AND REPOSITIONED. FIANCEE AT BEDSIDE. PT SETTLED IN AND APPEARS RESAING MORE COMFORTABLEY
--- NOTE | 2021-05-18 17:54 | NUR ---
PT'S SON PRESENT TODAY; HE RECOGNIZES SYMPTOMS OF ACTIVE DYING. PT IS NO LONGER RESPONSIVE. PT'S SON HAD QUESTIONS REGARDING "WHAT HAPPENS" AFTER PATIENT PASSES, RELATED TO CALLING TIME OF , CALLING THE MORTUARY AND OTHER END OF LIFE QUESTIONS. I GAVE HIM A [employer] LIST OF MORTUARIES AND ASSURRED HIM HE DOES NOT HAVE TO GO STRAIGHT TO THE MORTUARY, CAN MAKE AN APPOITMENT OR NOT SEE HER, WHATEVER IS BEST FOR HIM. HE IS APPRECIATIVE, AND HE TOOK THE LIST WITH HIM WHEN LEAVING FOR TODAY.
--- NOTE | 2021-05-18 19:26 | NUR ---
SUMM- PT RESTING QUIET NOW, RR 6, EYES CLOSED, NO SS OF DISCOMFORT. EARLIER AM WAS HAVING SEVERE AIR HUNGER MEDICATED WITH ROXONOL X2 AND PT BECAME COMFORTABLE AND RESTING RESP E/U. AWOKEN 1400 AGAIN WITH AIR HUNGER AND ANXIETY, MEDICATED ATIVAN AND ROXONOL, CALMED WITH MED AND RESTING COMFORTABLE. SINCE THAT TIME PT IN SEMI COMATOSE STATE, RESP SLOW AND SHALLOW. SONS AT THE BEDSIDE MOST OF THE DAY. WENT HOME IN PM, REPORTED TO ADILENE SHELLEY.
--- NOTE | 2021-05-19 06:20 | NUR ---
SUMMARY PT HAS REMAINED COMFORTABLE T/O SHIFT. PT FAMILY WENT HOME TO REST. WCTM.
--- NOTE | 2021-05-19 17:52 | NUR ---
SPOKE TO PT'S SONS TODAY REGARDING THEIR MOM'S END OF LIFE JOURNEY. THEY ARE WONDERING HOW LONG SHE CAN CONTINUE IN THIS MANNER, AND I EXPLAINED UNFORTUNATELY THERE IS NO WAY TO KNOW SPECIFICALLY, EACH PERSON IS DIFFERENT. HOWEVER, THERE ARE S/S PRESENT, SUCH ALTERED MENTAL STATUS, NON-RESPONSIVENESS, CHANGES IN BREATHING PATTERNS, AND SKIN COLOR CHANGES. PT'S SON'S VERBALIZE UNDERSTANDING. IT APPEARS THEY WERE BEGINNING TO FEEL FATIGUE OF BEING HERE IN THE HOSPITAL, WHICH IS UNDERSTANDING. WILL CONTINUE TO ATTEMPT TO KEEP FAMILY INFORMED, AND BE SURE THAT PT IS COMFORTABLE.
--- NOTE | 2021-05-19 18:29 | NUR ---
SHIFT SUMMARY PATIENT IS ON COMFORT CARE. PATIENT UNRESPONSIVE THROUGHOUT THIS SHIFT. PATIENT APPEARS COMFORTABLE THROUGHOUT THIS SHIFT. PATIENT'S SONS IN THE ROOM THROUGHOUT THIS SHIFT. PATIENT TURNED THROUGHOUT THIS SHIFT. PATIENT CURRENTLY RESTING WITH SONS AT BEDSIDE.
== END 2021-05-19 18:50 ==
LOC: ER 11:46 → ERHOLD 11:47 → MEDS 19:58
PROVIDERS: Physician Assistant; ADMIT Internal Medicine
DX: U07.1 COVID-19 (principal); J12.82 Pneumonia due to coronavirus disease 2019; J96.01 Acute respiratory failure with hypoxia; D69.6 Thrombocytopenia, unspecified; F32.9 Major depressive disorder, single episode, unspecified; F41.9 Anxiety disorder, unspecified; I48.20 Chronic atrial fibrillation, unspecified; J44.1 Chronic obstructive pulmonary disease with (acute) exacerbation; C34.90 Malignant neoplasm of unspecified part of unspecified bronchus or lung; I11.9 Hypertensive heart disease without heart failure; E78.5 Hyperlipidemia, unspecified; F17.210 Nicotine dependence, cigarettes, uncomplicated; Z88.8 Allergy status to other drugs, medicaments and biological substances; Z66 Do not resuscitate
CPT/HCPCS: 36415; 71045; 80053; 84484; 85025; 93005; 93010; 94640; 96374; 96375; 99285-25; A9270; G0378; J1630; J2060; J2270; J2550